=== PATIENT | male | born 1960 | race Caucasian/White ===

== ENCOUNTER 2017-06-03 06:30 | Day surgery (SDC) | payer OTHER ==
[~2017-06-03] VITALS: Ht 167.6 cm; Wt 72.6 kg
[2017-06-03 07:15] LABS: ALBUMIN 3.2 g/dL (3.4-5.0); BILIRUBIN,DIRECT 0.2 mg/dL (0.0-0.3); TOTAL BILIRUBIN 0.6 mg/dL (0.0-1.0)
[2017-06-03] MEDS ORDERED: fentaNYL 0.05 MG/ML VIAL ONE (07:24)
[2017-06-03] MEDS ORDERED: LIDOCAINE 2% 100 MG/5 ML UJET TP ONE (07:24)
[2017-06-03] MEDS ORDERED: MIDAZOLAM 2 MG/2 ML VIAL ONE ×2 (07:24)
[2017-06-03] MEDS ORDERED: INSULIN SQ (08:53)
[2017-06-03] MEDS ORDERED: BP MED PO (08:53)
[2017-06-03] MEDS ORDERED: DIURETIC PO (08:55)
[2017-06-04 07:46] LABS: HEPATITIS B SURFACE AB Non Reactive (.); HEPATITIS B SURFACE ANTIGEN Negative (Negative)
== END 2017-06-03 10:45 | disposition home or self-care (01) ==
LOC: MDS 06:30 → MMU 06:32 → MDS 10:45
PROVIDERS: ATTEND Internal Medicine Gastroenterology
DX: Z12.11 Encounter for screening for malignant neoplasm of colon (principal); Z98.890 Other specified postprocedural states; Z90.49 Acquired absence of other specified parts of digestive tract
CPT/HCPCS: 36415; 45378; 80076; 82948; 86706; 86708; 86803; 87340; J2250; J7030; J3010

== ENCOUNTER 2018-06-06 05:35 | Day surgery (SDC) | payer OTHER ==
[~2018-06-06] VITALS: Ht 167.6 cm; Wt 75.3 kg
[~2018-06-06 05:35] MED LIST: BP MED PO; DIURETIC PO; INSULIN SQ
[2018-06-06] MEDS ORDERED: FURO40TA9 PO (06:45)
[2018-06-06] MEDS ORDERED: OMEP20TC12 PO (06:45)
[2018-06-06] MEDS ORDERED: LIDOCAINE 2% 1000 MG/50 ML VIAL INJ ONE (07:40)
== END 2018-06-06 09:44 | disposition home or self-care (01) ==
LOC: MDS 05:35 → MMU 05:55 → MDS 09:44
PROVIDERS: ATTEND Internal Medicine Gastroenterology
DX: K70.10 Alcoholic hepatitis without ascites (principal); I10 Essential (primary) hypertension; E11.9 Type 2 diabetes mellitus without complications; Z79.899 Other long term (current) drug therapy; Z90.49 Acquired absence of other specified parts of digestive tract
CPT/HCPCS: 47000; 76942; 82948; 88307; 88313; J2001; Q0092

== ENCOUNTER 2018-09-30 06:29 | Day surgery (SDC) | payer OTHER ==
[~2018-09-30] VITALS: Ht 167.6 cm; Wt 75.3 kg
[~2018-09-30 06:29] MED LIST changes: +FURO40TA9 PO; +OMEP20TC12 PO
[2018-09-30] MEDS ORDERED: MIDAZOLAM 2 MG/2 ML VIAL ONE (08:04)
[2018-09-30] MEDS ORDERED: fentaNYL 0.05 MG/ML VIAL ONE (08:04)
[2018-09-30] MEDS ORDERED: MIDAZOLAM 2 MG/2 ML VIAL IVP ONE (09:40)
== END 2018-09-30 09:50 | disposition home or self-care (01) ==
LOC: MDS 06:29 → MMU 06:30 → MDS 09:50
PROVIDERS: ATTEND Internal Medicine Gastroenterology
DX: I85.00 Esophageal varices without bleeding (principal); K21.9 Gastro-esophageal reflux disease without esophagitis; K76.6 Portal hypertension; K31.89 Other diseases of stomach and duodenum; K70.30 Alcoholic cirrhosis of liver without ascites; I10 Essential (primary) hypertension; E11.9 Type 2 diabetes mellitus without complications; D64.9 Anemia, unspecified; Z98.49 Cataract extraction status, unspecified eye; Z98.890 Other specified postprocedural states; Z79.899 Other long term (current) drug therapy
CPT/HCPCS: 43235; 82948; J2250; J3010